=== PATIENT | female | born 1955 | race Caucasian/White ===

== ENCOUNTER 2020-01-25 16:36 | Inpatient (IN) | payer MEDICARE, SELFPAY ==
[2020-01-28 04:00] VITALS: BMI 43.0
[2020-01-28] MEDS: Docusate Sodium 100 MG CAPSULE PO (21:00)
[2020-01-29 04:00] VITALS: BP 113/59; PULSE 81; RESP 18; TEMP 36.9; O2SAT 97
[2020-01-29] MEDS: oxyCODONE HCl Immed Release 5 MG TABLET 10 MG PO ×2 (05:53→15:38)
[2020-01-29] MEDS: Levothyroxine Sodium 125 MCG TABLET 250 MCG PO (05:54)
[2020-01-29] MEDS: Omeprazole 20 MG CAPSULE.DR PO ×2 (05:54→17:46)
[2020-01-29] MEDS: Heparin Sodium,Porcine 5,000 UNIT/ML VIAL 5000 UNIT SUBCUT ×3 (05:54→22:34)
[2020-01-29 05:56] VITALS: O2SAT 97
[2020-01-29 07:40] LABS: Glucose, Whole Blood 120 mg/dL (60-115)
[2020-01-29 08:00] VITALS: BP 103/64; RESP 16; TEMP 36.3; O2SAT 92
[2020-01-29] MEDS: 0.9 % Sodium Chloride Flush 3 ML SYRINGE 2 ML IVFLUSH ×3 (09:28→15:38)
[2020-01-29] MEDS: atenoloL 25 MG TABLET PO (09:33)
[2020-01-29] MEDS: Docusate Sodium 100 MG CAPSULE PO ×2 (09:33→22:34)
[2020-01-29] MEDS: Furosemide 20 MG TABLET PO (09:33)
[2020-01-29] MEDS: polyethylene glycoL 3350 17 GM POWD.PACK PO (09:34)
[2020-01-29 12:00] VITALS: BP 101/50; RESP 16; TEMP 36.2; O2SAT 94
[2020-01-29] MEDS: Zinc Oxide 20% Ointment 28.35 GM TUBE 1 APPL TOPICAL ×2 (13:08→22:41)
--- NOTE | 2020-01-29 13:47 | PM.HEMONCPN ---
Medical Summary - Medical Summary Chief complaint: Metastatic disease to liver. Medical Summary: Metastatic adenocarcinoma, in the liver likely pancreatic primary. Interval History Interval history: This is an unfortunate 64-year-old lady with recent diagnosis of likely pancreatic primary with liver metastases and recurrent ascites. She had presented with Mental status changes, due to acute hypercapnia respiratory failure, hyperkalemia with acute kidney injury. she was initially admitted to the ICU. CT scan of the abdomen revealed: Overall examination is similar to the 01/01/2020 study. Moderate volume of abdominal ascites is again present. Multiple low-attenuation lesions in the liver are seen but difficult to evaluate on this noncontrast study. The larger lesions that are able to be measured appeared to measure fluid attenuation. Patient had intervening cytopathology assessing the ascites. Chronic appearing and postoperative changes otherwise as described. ultrasound of the neck: Right internal jugular central venous catheter terminates within the right atrium. ULTRASOUND - PARACENTEIS WITH IMAGING: Successful ultrasound-guided portable paracentesis performed with approximately 10 L of clear yellowish fluid removed. She is clinically not doing well. she has a poor performance status. She is in pain. She has ascites. The option for Comfort care has been addressed with the patient. Review of Systems - Constitutional Reports lack of energy, Reports malaise - ENT Reports system reviewed and no additional complaints, except as documented - Cardiovascular Reports lightheadedness - Respiratory Reports dyspnea on exertion - Gastrointestinal Reports abdominal pain, Reports bloating, Reports change in bowel habits, Reports change in stools, Reports nausea - Musculoskeletal Reports back pain, Reports body aches - Neurologic Reports lack of coordination - Psychiatric Reports depression - Endocrine Reports cold intolerance - Hematologic/Lymphatic Reports easy bleeding Home Medications and Allergies Current Medications: Current Medications Generic Name Dose Route Start Last Admin Trade Name Freq PRN Reason Stop Dose Admin Acetaminophen 650 mg 01/29/20 00:01 Acetaminophen 325 Mg Tablet PO Q6H PRN Fever/Pain.Mild (Scale 1-3) Albuterol Sulfate 2 puff 01/29/20 00:01 Albuterol Sulfate 90 Mcg 18 Gm Inhaler INHALE Q4H PRN Shortness of Breath Aspirin 81 mg 01/29/20 21:00 Aspirin 81 Mg Tab.Chew PO BEDTIME KURT Atenolol 25 mg 01/29/20 09:00 01/29/20 09:33 Atenolol 25 Mg Tablet PO 25 mg BID KURT Administration Atorvastatin Calcium 20 mg 01/29/20 21:00 Atorvastatin Calcium 20 Mg Tablet PO BEDTIME KURT Docusate Sodium 100 mg 01/28/20 21:00 01/29/20 09:33 Docusate Sodium 100 Mg Capsule PO 100 mg BID KURT Administration Ferrous Sulfate 324 mg 01/30/20 10:00 Ferrous Sulfate 324 Mg Tablet.Dr BOLDEN MOWEFR@1000 KURT Furosemide 20 mg 01/29/20 09:00 01/29/20 09:33 Furosemide 20 Mg Tablet PO 20 mg DAILY KURT Administration Gabapentin 300 mg 01/29/20 21:00 Gabapentin 300 Mg Capsule PO BEDTIME KURT Heparin Sodium (Porcine) 5,000 unit 01/29/20 06:00 01/29/20 05:54 Heparin Sodium,Porcine 5,000 Unit/Ml Vial SUBCUT 5,000 unit Q8H [facility] Administration Insulin Human Lispro 0 unit 01/29/20 08:00 01/29/20 13:07 Insulin Lispro 100 Unit/Ml 3 Ml Vial SUBCUT Not Given QIDACHS [facility] Protocol Levothyroxine Sodium 250 mcg 01/29/20 06:00 01/29/20 05:54 Levothyroxine Sodium 125 Mcg Tablet PO 250 mcg DAILY@0600 [facility] Administration Omeprazole 20 mg 01/29/20 06:30 01/29/20 05:54 Omeprazole 20 Mg Capsule.Dr BOLDEN 20 mg BID@0630,1630 [facility] Administration Ondansetron HCl 4 mg 01/29/20 00:01 Ondansetron Hcl 4 Mg/2 Ml Vial IVPUSH Q8H PRN Nausea and Vomiting Oxycodone HCl 10 mg 01/29/20 00:01 01/29/20 05:53 Oxycodone Hcl Immed Release 5 Mg Tablet PO 10 mg Q6H PRN Administration Pain, Moderate (Pain Scale 4-6 Polyethylene Glycol 17 gm 01/29/20 09:00 01/29/20 09:34 Polyethylene Glycol 3350 17 Gm Powd.Pack PO 17 gm DAILY [facility] Administration Sodium Chloride 2 ml 01/29/20 00:00 01/29/20 09:28 0.9 % Sodium Chloride Flush 3 Ml Syringe IVFLUSH 2 ml QSHIFT [facility] Administration Zinc Oxide 1 appl 01/29/20 09:00 01/29/20 13:08 Zinc Oxide 20% Ointment 28.35 Gm Tube TOPICAL 1 appl BID KURT Administration Protocol Home Medications Medication Instructions Recorded Confirmed Type albuterol sulfate [ProAir HFA] 2 puff INHALATION Q4-6H PRN 01/29/20 01/29/20 History alprazolam [Xanax] 0.25 mg PO BID PRN 01/29/20 01/29/20 History aspirin 81 mg PO DAILY 01/29/20 01/29/20 History atenolol 25 mg PO BID 01/29/20 01/29/20 History atorvastatin [Lipitor] 20 mg PO BEDTIME 01/29/20 01/29/20 History cholecalciferol (vitamin D3) 50 mcg PO DAILY 01/29/20 01/29/20 History docusate sodium [Colace] 100 mg PO BID 01/29/20 01/29/20 History ferrous sulfate 324 mg PO MOWEFR@1000 01/29/20 01/29/20 History furosemide 20 mg PO QAM 01/29/20 01/29/20 History gabapentin 300 mg PO BEDTIME 01/29/20 01/29/20 History insulin glargine U-300 conc 70 unit SUBCUT DAILY 01/29/20 01/29/20 History [Toujeo Max U-300 SoloStar] insulin lispro [Admelog SoloStar See Protocol SUBCUT QIDACHS 01/29/20 01/29/20 History U-100 Insulin] lactobacillus combo no.11 1 cap PO DAILY 01/29/20 01/29/20 History levothyroxine 250 mcg PO DAILY@0630 01/29/20 01/29/20 History magnesium oxide 400 mg PO BEDTIME 01/29/20 01/29/20 History metformin 1,000 mg PO BID 01/29/20 01/29/20 History omeprazole 20 mg PO BID@0630,1630 01/29/20 01/29/20 History ondansetron HCl [Zofran] 8 mg PO Q8H PRN 01/29/20 01/29/20 History oxycodone 5 mg PO Q6H PRN 01/29/20 01/29/20 History oxycodone 20 mg PO BID 01/29/20 01/29/20 History polyethylene glycol 3350 [Miralax] 17 g PO DAILY 01/29/20 01/29/20 History potassium gluconate 500 mg PO DAILY 01/29/20 01/29/20 History Allergies Allergy/AdvReac Type Severity Reaction Status Date / Time Sulfa (Sulfonamide Allergy Mild RASH Verified 01/30/20 15:43 Antibiotics) NEUTROGENA FACIAL SOAP Allergy Severe ASTHMA Uncoded 01/15/20 15:10 ATTACK Erythromycin Allergy Unknown Unknown Uncoded 01/30/20 15:43 nutregena Allergy Unknown Unknown Uncoded 01/30/20 15:43 Sulfamethoxazole Allergy Unknown Unknown Uncoded 01/30/20 15:43 Exam Vital signs: Vital Signs Temp 97.2 F 01/29/20 12:00 Pulse 81 01/29/20 04:00 Resp 16 01/29/20 12:00 BP 101/50 L 01/29/20 12:00 Pulse Ox 94 01/29/20 12:00 Intake & Output 01/28/20 01/29/20 01/29/20 18:59 06:59 18:59 Output Total 25 / 25 Balance -25 / -25 Urine Output (Average ml/kg/hr) 0.02 0.02 Output: Output, Urine Amount 25 / 25 Other: Meal Refused No Breakfast % Eaten 25% Urine ny Urine Color Mary Lou Weight 110 kg Body Mass Index 43.0 Data - Labs CBC & Chem 7: 01/31/20 01:54 01/31/20 09:14 Labs: Laboratory Results - last 24 hr 01/25/20 01/26/20 01/26/20 23:43 05:19 05:27 WBC RBC Hgb Hct MCV MCH MCHC RDW Coeff of Pratibha Plt Count MPV Immature Gran % (Auto) Neut % (Auto) Lymph % (Auto) [place] % (Auto) Eos % (Auto) Baso % (Auto) Abs Immat Gran (auto) Absolute Lymphs (auto) Absolute Monos (auto) Absolute Eos (auto) Absolute Basos (auto) Absolute Nucleated RBC Nucleated RBC % (auto) Absolute Neutrophils D-Dimer VBG pH VBG pCO2 VBG pO2 VBG HCO3 VBG O2 Sat ([place]) VBG Base Excess FiO2 Sodium 136 Potassium 4.5 D Chloride 99 Bicarbonate 29 Anion Gap 13 BUN 26 H Creatinine 0.92 Estimated Creat Clear 74.5 Est GFR (Non-Af Amer) > 60 POC Glucose 133 H 114 Random Glucose 125 H Calcium 8.1 L Phosphorus 4.3 Magnesium 2.6 Total Bilirubin 2.6 H AST 54 H ALT 18 Alkaline Phosphatase 768 H D Total Protein 5.9 L Albumin 3.0 L D Carcinoembryonic Ag 0.70 Fluid Type Fluid Source Fluid WBC Fluid RBC Fluid Seg Neutrophils Fluid Lymphocytes Fluid Monocytes Fluid Eosinophils Fluid Basophils Fluid Other Cells Fluid Glucose Fluid Total Protein Fluid LDH Fluid Amylase 01/26/20 01/26/20 01/26/20 05:27 05:27 08:01 WBC 13.2 H RBC 3.95 L Hgb 9.5 L Hct 33.4 L MCV 84.6 MCH 24.1 L MCHC 28.4 L RDW Coeff of Pratibha 20.1 H Plt Count 340 MPV 9.6 Immature Gran % (Auto) 0.4 Neut % (Auto) 79.8 H Lymph % (Auto) 9.4 L [place] % (Auto) 8.2 Eos % (Auto) 1.7 Baso % (Auto) 0.5 Abs Immat Gran (auto) 0.05 H Absolute Lymphs (auto) 1.2 Absolute Monos (auto) 1.1 Absolute Eos (auto) 0.2 Absolute Basos (auto) 0.1 Absolute Nucleated RBC 0.000 Nucleated RBC % (auto) 0.0 Absolute Neutrophils 10.5 H D-Dimer VBG pH 7.35 VBG pCO2 53 VBG pO2 45 VBG HCO3 29 VBG O2 Sat ([place]) 79.1 VBG Base Excess 2.1 FiO2 . Sodium Potassium Chloride Bicarbonate Anion Gap BUN Creatinine Estimated Creat Clear Est GFR (Non-Af Amer) POC Glucose 120 H Random Glucose Calcium Phosphorus Magnesium Total Bilirubin AST ALT Alkaline Phosphatase Total Protein Albumin Carcinoembryonic Ag Fluid Type Fluid Source Fluid WBC Fluid RBC Fluid Seg Neutrophils Fluid Lymphocytes Fluid Monocytes Fluid Eosinophils Fluid Basophils Fluid Other Cells Fluid Glucose Fluid Total Protein Fluid LDH Fluid Amylase 01/26/20 01/26/20 01/26/20 11:31 11:31 11:31 WBC RBC Hgb Hct MCV MCH MCHC RDW Coeff of [place]ha Plt Count MPV Immature Gran % (Auto) Neut % (Auto) Lymph % (Auto) [place] % (Auto) Eos % (Auto) Baso % (Auto) Abs Immat Gran (auto) Absolute Lymphs (auto) Absolute Monos (auto) Absolute Eos (auto) Absolute Basos (auto) Absolute Nucleated RBC Nucleated RBC % (auto) Absolute Neutrophils D-Dimer VBG pH VBG pCO2 VBG pO2 VBG HCO3 VBG O2 Sat ([place]) VBG Base Excess FiO2 Sodium Potassium Chloride Bicarbonate Anion Gap BUN Creatinine Estimated Creat Clear Est GFR (Non-Af Amer) POC Glucose Random Glucose Calcium Phosphorus Magnesium Total Bilirubin AST ALT Alkaline Phosphatase Total Protein Albumin Carcinoembryonic Ag Fluid Type ABDOMINAL Fluid Source ABDOMINAL ABDOMINAL Fluid WBC 0.229 Fluid RBC < 0.002 Fluid Seg Neutrophils 17 Fluid Lymphocytes 28 Fluid Monocytes 20 Fluid Eosinophils 0 Fluid Basophils 0 Fluid Other Cells 35 Fluid Glucose 134.0 Fluid Total Protein 2.9 Fluid LDH 87 Fluid Amylase 12.0 01/26/20 01/26/20 01/26/20 12:01 14:00 17:46 WBC RBC Hgb Hct MCV MCH MCHC RDW Coeff of [place]ha Plt Count MPV Immature Gran % (Auto) Neut % (Auto) Lymph % (Auto) [place] % (Auto) Eos % (Auto) Baso % (Auto) Abs Immat Gran (auto) Absolute Lymphs (auto) Absolute Monos (auto) Absolute Eos (auto) Absolute Basos (auto) Absolute Nucleated RBC Nucleated RBC % (auto) Absolute Neutrophils D-Dimer 845 VBG pH VBG pCO2 VBG pO2 VBG HCO3 VBG O2 Sat ([place]) VBG Base Excess FiO2 Sodium Potassium Chloride Bicarbonate Anion Gap BUN Creatinine Estimated Creat Clear Est GFR (Non-Af Amer) POC Glucose 132 H 148 H Random Glucose Calcium Phosphorus Magnesium Total Bilirubin AST ALT Alkaline Phosphatase Total Protein Albumin Carcinoembryonic Ag Fluid Type Fluid Source Fluid WBC Fluid RBC Fluid Seg Neutrophils Fluid Lymphocytes Fluid Monocytes Fluid Eosinophils Fluid Basophils Fluid Other Cells Fluid Glucose Fluid Total Protein Fluid LDH Fluid Amylase 01/26/20 01/27/20 01/27/20 21:05 07:25 11:37 WBC RBC Hgb Hct MCV MCH MCHC RDW Coeff of [place]ha Plt Count MPV Immature Gran % (Auto) Neut % (Auto) Lymph % (Auto) [place] % (Auto) Eos % (Auto) Baso % (Auto) Abs Immat Gran (auto) Absolute Lymphs (auto) Absolute Monos (auto) Absolute Eos (auto) Absolute Basos (auto) Absolute Nucleated RBC Nucleated RBC % (auto) Absolute Neutrophils D-Dimer VBG pH VBG pCO2 VBG pO2 VBG HCO3 VBG O2 Sat ([place]) VBG Base Excess FiO2 Sodium Potassium Chloride Bicarbonate Anion Gap BUN Creatinine Estimated Creat Clear Est GFR (Non-Af Amer) POC Glucose 158 H 138 H 154 H Random Glucose Calcium Phosphorus Magnesium Total Bilirubin AST ALT Alkaline Phosphatase Total Protein Albumin Carcinoembryonic Ag Fluid Type Fluid Source Fluid WBC Fluid RBC Fluid Seg Neutrophils Fluid Lymphocytes Fluid Monocytes Fluid Eosinophils Fluid Basophils Fluid Other Cells Fluid Glucose Fluid Total Protein Fluid LDH Fluid Amylase 01/27/20 01/27/20 01/28/20 16:56 21:55 07:21 WBC RBC Hgb Hct MCV MCH MCHC RDW Coeff of [place] Plt Count MPV Immature Gran % (Auto) Neut % (Auto) Lymph % (Auto) [place] % (Auto) Eos % (Auto) Baso % (Auto) Abs Immat Gran (auto) Absolute Lymphs (auto) Absolute Monos (auto) Absolute Eos (auto) Absolute Basos (auto) Absolute Nucleated RBC Nucleated RBC % (auto) Absolute Neutrophils D-Dimer VBG pH VBG pCO2 VBG pO2 VBG HCO3 VBG O2 Sat ([place]) VBG Base Excess FiO2 Sodium Potassium Chloride Bicarbonate Anion Gap BUN Creatinine Estimated Creat Clear Est GFR (Non-Af Amer) POC Glucose 132 H 125 H 133 H Random Glucose Calcium Phosphorus Magnesium Total Bilirubin AST ALT Alkaline Phosphatase Total Protein Albumin Carcinoembryonic Ag Fluid Type Fluid Source Fluid WBC Fluid RBC Fluid Seg Neutrophils Fluid Lymphocytes Fluid Monocytes Fluid Eosinophils Fluid Basophils Fluid Other Cells Fluid Glucose Fluid Total Protein Fluid LDH Fluid Amylase 01/28/20 01/28/20 01/28/20 11:10 16:10 21:17 WBC RBC Hgb Hct MCV MCH MCHC RDW Coeff of [place]ha Plt Count MPV Immature Gran % (Auto) Neut % (Auto) Lymph % (Auto) [place] % (Auto) Eos % (Auto) Baso % (Auto) Abs Immat Gran (auto) Absolute Lymphs (auto) Absolute Monos (auto) Absolute Eos (auto) Absolute Basos (auto) Absolute Nucleated RBC Nucleated RBC % (auto) Absolute Neutrophils D-Dimer VBG pH VBG pCO2 VBG pO2 VBG HCO3 VBG O2 Sat ([place]) VBG Base Excess FiO2 Sodium Potassium Chloride Bicarbonate Anion Gap BUN Creatinine Estimated Creat Clear Est GFR (Non-Af Amer) POC Glucose 134 H 135 H 134 H Random Glucose Calcium Phosphorus Magnesium Total Bilirubin AST ALT Alkaline Phosphatase Total Protein Albumin Carcinoembryonic Ag Fluid Type Fluid Source Fluid WBC Fluid RBC Fluid Seg Neutrophils Fluid Lymphocytes Fluid Monocytes Fluid Eosinophils Fluid Basophils Fluid Other Cells Fluid Glucose Fluid Total Protein Fluid LDH Fluid Amylase 01/29/20 07:37 WBC RBC Hgb Hct MCV MCH MCHC RDW Coeff of [place] Plt Count MPV Immature Gran % (Auto) Neut % (Auto) Lymph % (Auto) [place] % (Auto) Eos % (Auto) Baso % (Auto) Abs Immat Gran (auto) Absolute Lymphs (auto) Absolute Monos (auto) Absolute Eos (auto) Absolute Basos (auto) Absolute Nucleated RBC Nucleated RBC % (auto) Absolute Neutrophils D-Dimer VBG pH VBG pCO2 VBG pO2 VBG HCO3 VBG O2 Sat ([place]) VBG Base Excess FiO2 Sodium Potassium Chloride Bicarbonate Anion Gap BUN Creatinine Estimated Creat Clear Est GFR (Non-Af Amer) POC Glucose 120 H Random Glucose Calcium Phosphorus Magnesium Total Bilirubin AST ALT Alkaline Phosphatase Total Protein Albumin Carcinoembryonic Ag Fluid Type Fluid Source Fluid WBC Fluid RBC Fluid Seg Neutrophils Fluid Lymphocytes Fluid Monocytes Fluid Eosinophils Fluid Basophils Fluid Other Cells Fluid Glucose Fluid Total Protein Fluid LDH Fluid Amylase Progress Note: A/P (1) Liver metastases Status: Acute Assessment and plan: IMPRESSION AND PLAN: 64-year-old unfortunate lady with widely metastatic Adenocarcinoma in the liver with possible underlying pancreatic primary. Unfortunately she has been diagnosed rather late in her course, and her prognosis is rather guarded. I went over the guarded prognosis and limited options for care, in this lady with the very poor performance status, who is mostly bedridden. I discussed options of home hospice versus inpatient hospice care. They would like to bring her home, according to her wishes. however they would like to have an indwelling PleurX catheter for possible drainage of ascites at home for palliation. I discussed this with Dr. Srivastava. She will try to set this up, with IR. I discussed the case further with the case management, to make a referral to [facility]. She will need a hospital bed. She will be discharged home once the arrangements have been made. Thank you, - Time Spent With Patient Total time spent is greater than 50% in coordination of care (as documented) at patient's floor/unit and/or counseling patient: 15 - 24 minutes
[2020-01-29 15:39] VITALS: BP 101/55; PULSE 76; RESP 20; TEMP 36; O2SAT 92
--- NOTE | 2020-01-29 16:27 | P.PNIM_ITS ---
Subjective Subjective Date of Service: 01/29/20 Interval History: patient seen and examined at bedside patient reported weakness Physical Exam Vital Signs and I&O and Narrative: Vital Signs and I&O: Vital Signs Temp 96.8 F 01/29/20 15:39 Pulse 76 01/29/20 15:39 Resp 20 01/29/20 15:39 BP 101/55 L 01/29/20 15:39 Pulse Ox 92 01/29/20 15:39 Intake & Output 01/28/20 01/29/20 01/29/20 18:59 06:59 18:59 Intake Total 180 / 180 Output Total 25 / 25 200 / 200 Balance -25 / -25 - -20 Urine Output (Aver age ml/kg/hr) 0.02 0.15 Intake: Intake, Oral [place] unt 180 / 180 Output: Output, Urine Am ount 25 / 25 200 / 200 Other: Meal Refused No Breakfast % Eate n 25% Urine ny prewick Urine Color [place] Body Mass Index 43.0 Const: General: cooperative Resp: Effort & Inspection: normal respiratory effort Auscultation: clear to auscultation bilaterally Cardio: Jugular venous distension: no JVD Objective Data Current Medications Generic Name Dose Route Start Last Admin Trade Name Freq PRN Reason Stop Dose Admin Acetaminophen 650 mg 01/29/20 00:01 Acetaminophen 325 Mg Tablet PO Q6H PRN Fever/Pain.Mild (Scale 1-3) Albuterol Sulfate 2 puff 01/29/20 00:01 Albuterol Sulfate 90 Mcg 18 Gm Inhaler INHALE Q4H PRN Shortness of Breath Aspirin 81 mg 01/29/20 21:00 Aspirin 81 Mg Tab.Chew PO BEDTIME KURT Atenolol 25 mg 01/29/20 09:00 01/29/20 09:33 Atenolol 25 Mg Tablet PO 25 mg BID [facility] Administration Atorvastatin Calcium 20 mg 01/29/20 21:00 Atorvastatin Calcium 20 Mg Tablet PO BEDTIME KURT Docusate Sodium 100 mg 01/28/20 21:00 01/29/20 09:33 Docusate Sodium 100 Mg Capsule PO 100 mg BID KURT Administration Ferrous Sulfate 324 mg 01/30/20 10:00 Ferrous Sulfate 324 Mg Tablet. PO MOWEFR@1000 [facility] Furosemide 20 mg 01/29/20 09:00 01/29/20 09:33 Furosemide 20 Mg Tablet PO 20 mg DAILY KURT Administration Gabapentin 300 mg 01/29/20 21:00 Gabapentin 300 Mg Capsule PO BEDTIME KURT Heparin Sodium (Porcine) 5,000 unit 01/29/20 06:00 01/29/20 15:38 Heparin Sodium,Porcine 5,000 Unit/Ml Vial SUBCUT 5,000 unit Q8H [facility] Administration Insulin Human Lispro 0 unit 01/29/20 08:00 01/29/20 13:07 Insulin Lispro 100 Unit/Ml 3 Ml Vial SUBCUT Not Given QIDACHS [facility] Protocol Levothyroxine Sodium 250 mcg 01/29/20 06:00 01/29/20 05:54 Levothyroxine Sodium 125 Mcg Tablet PO 250 mcg DAILY@0600 [facility] Administration Omeprazole 20 mg 01/29/20 06:30 01/29/20 05:54 Omeprazole 20 Mg Capsule. PO 20 mg BID@0630,1630 [facility] Administration Ondansetron HCl 4 mg 01/29/20 00:01 Ondansetron Hcl 4 Mg/2 Ml Vial IVPUSH Q8H PRN Nausea and Vomiting Oxycodone HCl 10 mg 01/29/20 00:01 01/29/20 15:38 Oxycodone Hcl Immed Release 5 Mg Tablet PO 10 mg Q6H PRN Administration Pain, Moderate (Pain Scale 4-6 Polyethylene Glycol 17 gm 01/29/20 09:00 01/29/20 09:34 Polyethylene Glycol 3350 17 Gm Powd.Pack PO 17 gm DAILY [facility] Administration Sodium Chloride 2 ml 01/29/20 00:00 01/29/20 15:38 0.9 % Sodium Chloride Flush 3 Ml Syringe IVFLUSH 2 ml QSHIFT [facility] Administration Zinc Oxide 1 appl 01/29/20 09:00 01/29/20 13:08 Zinc Oxide 20% Ointment 28.35 Gm Tube TOPICAL 1 appl BID KURT Administration Protocol Labs CBC & Chem 7: 01/29/20 17:35 01/30/20 09:47 Labs: Laboratory Results - last 24 hr 01/25/20 01/26/20 01/26/20 23:43 05:19 05:27 MCV MCH MCHC RDW Coeff of Pratibha Plt Count MPV Immature Gran % (Auto) Neut % (Auto) Lymph % (Auto) [place] % (Auto) Eos % (Auto) Baso % (Auto) Abs Immat Gran (auto) Absolute Lymphs (auto) Absolute Monos (auto) Absolute Eos (auto) Absolute Basos (auto) Absolute Nucleated RBC Nucleated RBC % (auto) Absolute Neutrophils D-Dimer VBG pH VBG pCO2 VBG pO2 VBG HCO3 VBG O2 Sat ([place]) VBG Base Excess FiO2 Bicarbonate 29 Anion Gap 13 Estimated Creat Clear 74.5 Est GFR (Non-Af Amer) > 60 POC Glucose 133 H 114 Random Glucose 125 H Calcium 8.1 L Phosphorus 4.3 Magnesium 2.6 Total Bilirubin 2.6 H AST 54 H ALT 18 Alkaline Phosphatase 768 H D Total Protein 5.9 L Albumin 3.0 L D Carcinoembryonic Ag 0.70 Fluid Type Fluid Source Fluid WBC Fluid RBC Fluid Seg Neutrophils Fluid Lymphocytes Fluid Monocytes Fluid Eosinophils Fluid Basophils Fluid Other Cells Fluid Glucose Fluid Total Protein Fluid LDH Fluid Amylase 01/26/20 01/26/20 01/26/20 05:27 05:27 08:01 MCV 84.6 MCH 24.1 L MCHC 28.4 L RDW Coeff of Pratibha 20.1 H Plt Count 340 MPV 9.6 Immature Gran % (Auto) 0.4 Neut % (Auto) 79.8 H Lymph % (Auto) 9.4 L [place] % (Auto) 8.2 Eos % (Auto) 1.7 Baso % (Auto) 0.5 Abs Immat Gran (auto) 0.05 H Absolute Lymphs (auto) 1.2 Absolute Monos (auto) 1.1 Absolute Eos (auto) 0.2 Absolute Basos (auto) 0.1 Absolute Nucleated RBC 0.000 Nucleated RBC % (auto) 0.0 Absolute Neutrophils 10.5 H D-Dimer VBG pH 7.35 VBG pCO2 53 VBG pO2 45 VBG HCO3 29 VBG O2 Sat ([place]) 79.1 VBG Base Excess 2.1 FiO2 . Bicarbonate Anion Gap Estimated Creat Clear Est GFR (Non-Af Amer) POC Glucose 120 H Random Glucose Calcium Phosphorus Magnesium Total Bilirubin AST ALT Alkaline Phosphatase Total Protein Albumin Carcinoembryonic Ag Fluid Type Fluid Source Fluid WBC Fluid RBC Fluid Seg Neutrophils Fluid Lymphocytes Fluid Monocytes Fluid Eosinophils Fluid Basophils Fluid Other Cells Fluid Glucose Fluid Total Protein Fluid LDH Fluid Amylase 01/26/20 01/26/20 01/26/20 11:31 11:31 11:31 MCV MCH MCHC RDW Coeff of Pratibha Plt Count MPV Immature Gran % (Auto) Neut % (Auto) Lymph % (Auto) [place] % (Auto) Eos % (Auto) Baso % (Auto) Abs Immat Gran (auto) Absolute Lymphs (auto) Absolute Monos (auto) Absolute Eos (auto) Absolute Basos (auto) Absolute Nucleated RBC Nucleated RBC % (auto) Absolute Neutrophils D-Dimer VBG pH VBG pCO2 VBG pO2 VBG HCO3 VBG O2 Sat ([place]) VBG Base Excess FiO2 Bicarbonate Anion Gap Estimated Creat Clear Est GFR (Non-Af Amer) POC Glucose Random Glucose Calcium Phosphorus Magnesium Total Bilirubin AST ALT Alkaline Phosphatase Total Protein Albumin Carcinoembryonic Ag Fluid Type ABDOMINAL Fluid Source ABDOMINAL ABDOMINAL Fluid WBC 0.229 Fluid RBC < 0.002 Fluid Seg Neutrophils 17 Fluid Lymphocytes 28 Fluid Monocytes 20 Fluid Eosinophils 0 Fluid Basophils 0 Fluid Other Cells 35 Fluid Glucose 134.0 Fluid Total Protein 2.9 Fluid LDH 87 Fluid Amylase 12.0 01/26/20 01/26/20 01/26/20 12:01 14:00 17:46 MCV MCH MCHC RDW Coeff of [place] Plt Count MPV Immature Gran % (Auto) Neut % (Auto) Lymph % (Auto) [place] % (Auto) Eos % (Auto) Baso % (Auto) Abs Immat Gran (auto) Absolute Lymphs (auto) Absolute Monos (auto) Absolute Eos (auto) Absolute Basos (auto) Absolute Nucleated RBC Nucleated RBC % (auto) Absolute Neutrophils D-Dimer 845 VBG pH VBG pCO2 VBG pO2 VBG HCO3 VBG O2 Sat ([place]) VBG Base Excess FiO2 Bicarbonate Anion Gap Estimated Creat Clear Est GFR (Non-Af Amer) POC Glucose 132 H 148 H Random Glucose Calcium Phosphorus Magnesium Total Bilirubin AST ALT Alkaline Phosphatase Total Protein Albumin Carcinoembryonic Ag Fluid Type Fluid Source Fluid WBC Fluid RBC Fluid Seg Neutrophils Fluid Lymphocytes Fluid Monocytes Fluid Eosinophils Fluid Basophils Fluid Other Cells Fluid Glucose Fluid Total Protein Fluid LDH Fluid Amylase 01/26/20 01/27/20 01/27/20 21:05 07:25 11:37 MCV MCH MCHC RDW Coeff of Pratibha Plt Count MPV Immature Gran % (Auto) Neut % (Auto) Lymph % (Auto) [place] % (Auto) Eos % (Auto) Baso % (Auto) Abs Immat Gran (auto) Absolute Lymphs (auto) Absolute Monos (auto) Absolute Eos (auto) Absolute Basos (auto) Absolute Nucleated RBC Nucleated RBC % (auto) Absolute Neutrophils D-Dimer VBG pH VBG pCO2 VBG pO2 VBG HCO3 VBG O2 Sat ([place]) VBG Base Excess FiO2 Bicarbonate Anion Gap Estimated Creat Clear Est GFR (Non-Af Amer) POC Glucose 158 H 138 H 154 H Random Glucose Calcium Phosphorus Magnesium Total Bilirubin AST ALT Alkaline Phosphatase Total Protein Albumin Carcinoembryonic Ag Fluid Type Fluid Source Fluid WBC Fluid RBC Fluid Seg Neutrophils Fluid Lymphocytes Fluid Monocytes Fluid Eosinophils Fluid Basophils Fluid Other Cells Fluid Glucose Fluid Total Protein Fluid LDH Fluid Amylase 01/27/20 01/27/20 01/28/20 16:56 21:55 07:21 MCV MCH MCHC RDW Coeff of Pratibha Plt Count MPV Immature Gran % (Auto) Neut % (Auto) Lymph % (Auto) [place] % (Auto) Eos % (Auto) Baso % (Auto) Abs Immat Gran (auto) Absolute Lymphs (auto) Absolute Monos (auto) Absolute Eos (auto) Absolute Basos (auto) Absolute Nucleated RBC Nucleated RBC % (auto) Absolute Neutrophils D-Dimer VBG pH VBG pCO2 VBG pO2 VBG HCO3 VBG O2 Sat ([place]) VBG Base Excess FiO2 Bicarbonate Anion Gap Estimated Creat Clear Est GFR (Non-Af Amer) POC Glucose 132 H 125 H 133 H Random Glucose Calcium Phosphorus Magnesium Total Bilirubin AST ALT Alkaline Phosphatase Total Protein Albumin Carcinoembryonic Ag Fluid Type Fluid Source Fluid WBC Fluid RBC Fluid Seg Neutrophils Fluid Lymphocytes Fluid Monocytes Fluid Eosinophils Fluid Basophils Fluid Other Cells Fluid Glucose Fluid Total Protein Fluid LDH Fluid Amylase 01/28/20 01/28/20 01/28/20 11:10 16:10 21:17 MCV MCH MCHC RDW Coeff of Pratibha Plt Count MPV Immature Gran % (Auto) Neut % (Auto) Lymph % (Auto) [place] % (Auto) Eos % (Auto) Baso % (Auto) Abs Immat Gran (auto) Absolute Lymphs (auto) Absolute Monos (auto) Absolute Eos (auto) Absolute Basos (auto) Absolute Nucleated RBC Nucleated RBC % (auto) Absolute Neutrophils D-Dimer VBG pH VBG pCO2 VBG pO2 VBG HCO3 VBG O2 Sat ([place]) VBG Base Excess FiO2 Bicarbonate Anion Gap Estimated Creat Clear Est GFR (Non-Af Amer) POC Glucose 134 H 135 H 134 H Random Glucose Calcium Phosphorus Magnesium Total Bilirubin AST ALT Alkaline Phosphatase Total Protein Albumin Carcinoembryonic Ag Fluid Type Fluid Source Fluid WBC Fluid RBC Fluid Seg Neutrophils Fluid Lymphocytes Fluid Monocytes Fluid Eosinophils Fluid Basophils Fluid Other Cells Fluid Glucose Fluid Total Protein Fluid LDH Fluid Amylase 01/29/20 07:37 MCV MCH MCHC RDW Coeff of Pratibha Plt Count MPV Immature Gran % (Auto) Neut % (Auto) Lymph % (Auto) [place] % (Auto) Eos % (Auto) Baso % (Auto) Abs Immat Gran (auto) Absolute Lymphs (auto) Absolute Monos (auto) Absolute Eos (auto) Absolute Basos (auto) Absolute Nucleated RBC Nucleated RBC % (auto) Absolute Neutrophils D-Dimer VBG pH VBG pCO2 VBG pO2 VBG HCO3 VBG O2 Sat ([place]) VBG Base Excess FiO2 Bicarbonate Anion Gap Estimated Creat Clear Est GFR (Non-Af Amer) POC Glucose 120 H Random Glucose Calcium Phosphorus Magnesium Total Bilirubin AST ALT Alkaline Phosphatase Total Protein Albumin Carcinoembryonic Ag Fluid Type Fluid Source Fluid WBC Fluid RBC Fluid Seg Neutrophils Fluid Lymphocytes Fluid Monocytes Fluid Eosinophils Fluid Basophils Fluid Other Cells Fluid Glucose Fluid Total Protein Fluid LDH Fluid Amylase Assessment and Plan (1) Acute hypercapnic respiratory failure due to obstructive sleep apnea: Status: Acute (2) Metastasis from pancreatic cancer: Status: Acute Assessment and Plan: acute hypercapnic respiratory failure metastatic pancreatic cancer continue BiPAP at night given advanced metastatic cancer patient is not candidate for any chemo, discuss goals of care with patient and family plan for hospice given recurrent ascites family requested PleurX catheter will order PleurX catheter for tomorrow and patient will be discharged home on hospice
[2020-01-29 17:46] LABS: Glucose, Whole Blood 139 mg/dL (60-115)
[2020-01-29 17:58] LABS: Basophils Absolute Auto 0.1 X10*3/uL (0.0-0.2); Basophils Percent Auto 0.4 % (0-2); Eosinophils Absolute Auto 0.3 X10*3/uL (0.0-0.4); Eosinophils Percent Auto 1.5 % (0-4); Hemoglobin 10.9 g/dl (12.0-16.0); Imm Gran Abs Auto 0.09 X10*3/uL (0.00-0.03); Imm Gran Pct Auto 0.5 % (0.0-0.4); Lymphocytes Absolute Auto 1.6 X10*3/uL (1.2-4.9); Lymphocytes Percent Auto 9.1 % (20-40); MANUAL DIFF FLAG SCAN; Mean Corpuscular HGB Conc 28.7 g/dl (31.0-35.0); Mean Corpuscular Hemoglobin 23.8 pg (27.0-33.0); Mean Platelet Volume 9.8 fL (9.4-12.3); Monocytes Absolute Auto 1.5 X10*3/uL (0.1-1.2); Monocytes Percent Auto 8.5 % (2-11); Neutrophils Absolute Auto 14.3 X10*3/uL (2.0-8.3); Platelet Count 324 X10*3/uL (160-400); Red Blood Count 4.58 X10*6/uL (4.20-5.50); Red Cell Distribution Width 21.4 % (11.0-16.0); SCAN SMEAR FLAG 1; White Blood Count 17.9 X10*3/uL (4.8-10.8)
[2020-01-29 18:22] LABS: INTERNATIONAL NORM RATIO 1.6 (0.9-1.1); Prothrombin Time 18.8 SEC (10.8-13.0)
[2020-01-29 18:23] LABS: SLIDE REVIEW VERIFIED
[2020-01-29 18:35] LABS: Anion Gap 13 (12-20); Blood Urea Nitrogen 28 mg/dL (9-16); Calcium 7.7 mg/dL (8.4-10.2); Carbon Dioxide 28 mmol/L (22-29); Chloride 98 mmol/L (96-108); Creatinine Clr Calc Pharmacy 66.6; Estimated Glomerular Filt Rate 56; Glucose Random 131 mg/dL (60-115); Potassium 5.3 mmol/l (3.3-5.1); Sodium 134 mmol/L (135-145)
[2020-01-29 19:25] VITALS: BP 98/57; PULSE 77; RESP 18; TEMP 36.8; O2SAT 91
[2020-01-29 21:47] LABS: Glucose, Whole Blood 135 mg/dL (60-115)
[2020-01-29] MEDS: Aspirin 81 MG TAB.CHEW PO (22:34)
[2020-01-29] MEDS: Gabapentin 300 MG CAPSULE PO (22:34)
[2020-01-30] VITALS (14 sets, daily range): BP systolic 82–132; BP diastolic 51–68; PULSE 78–110; RESP 16–103; TEMP 36.5–37.9; O2SAT 90–99; BMI 42.8; BMI 44.1
--- NOTE | 2020-01-30 | US_ITS ---
EXAMINATION: ULTRASOUND-GUIDED PARACENTESIS. CLINICAL INFORMATION: Malignant ascites. COMPARISON: None TECHNIQUE: Following explaining ultrasound-guided thoracentesis procedure, benefits and risk, a written consent was obtained. Patient was placed supine on fluoroscopy table and preliminary ultrasound imaging was obtained through the abdomen. An optimal site was selected along the left lower quadrant and marked. The marked site was cleaned and draped in usual sterile manner. 1% lidocaine was injected puncture site. A 5 [place] KineMed catheter was advanced into the peritoneal space. After observing fluid return, stylet was withdrawn and catheter connected to vacuum bottle via connecting cannula. After obtaining all fluid and observing no more fluid remaining, catheter was withdrawn and complete hemostasis achieved at puncture site. Patient tolerated procedure very well. [Simple band aid was applied at the puncture site postprocedure. FINDINGS: There is moderate ascites seen on preliminary ultrasound evaluation. Approximately 6.5 L of dean-colored fluid was drained from left lower quadrant. IMPRESSION: Successful fluoroscopy-guided 6.5 L of fluid drained from the left lower quadrant. None of this fluid was sent to lab.
[2020-01-30] MEDS: oxyCODONE HCl Immed Release 5 MG TABLET 10 MG PO ×2 (00:55→17:41)
[2020-01-30] MEDS: 0.9 % Sodium Chloride Flush 3 ML SYRINGE 2 ML IVFLUSH ×3 (00:56→17:05)
[2020-01-30] MEDS: Levothyroxine Sodium 125 MCG TABLET 250 MCG PO (05:31)
[2020-01-30] MEDS: Omeprazole 20 MG CAPSULE.DR PO ×2 (05:31→17:02)
[2020-01-30 07:33] LABS: Glucose, Whole Blood 130 mg/dL (60-115)
[2020-01-30] MEDS: Docusate Sodium 100 MG CAPSULE PO (08:22)
[2020-01-30] MEDS: Furosemide 20 MG TABLET PO (08:23)
[2020-01-30] MEDS: Ferrous Sulfate 324 MG TABLET.DR PO (08:23)
[2020-01-30 10:36] LABS: Anion Gap 13 (12-20); Carbon Dioxide 27 mmol/L (22-29); Chloride 96 mmol/L (96-108); Creatinine Clr Calc Pharmacy 63.1; Estimated Glomerular Filt Rate 52; Glucose Random 141 mg/dL (60-115); Potassium 5.6 mmol/l (3.3-5.1); Sodium 130 mmol/L (135-145)
[2020-01-30 10:40] LABS: Blood Urea Nitrogen 33 mg/dL (9-16)
[2020-01-30 11:19] LABS: Glucose, Whole Blood 125 mg/dL (60-115)
[2020-01-30] MEDS: Phytonadione (Vit K1) 5 MG in 0.9 % Sodium Chloride 50 ML 50.5 MG IV (11:35)
[2020-01-30] MEDS: Zinc Oxide 20% Ointment 28.35 GM TUBE 1 APPL TOPICAL ×2 (11:35→21:45)
[2020-01-30] MEDS: Lidocaine HCl 1 % 20 ML VIAL 5 ML SUBCUT (13:15)
--- NOTE | 2020-01-30 14:26 | MHC.PIE ---
P: BP: 84/52 manually checked I: Patient asymptomatic, md notified. no new orders at this time. E: Will continue to monitor BP.
[2020-01-30] MEDS: Heparin Sodium,Porcine 5,000 UNIT/ML VIAL 5000 UNIT SUBCUT ×2 (14:31→21:04)
--- NOTE | 2020-01-30 14:31 | MHC.CM.PN ---
TC from [facility] hospice who states patient can't be sent home on Hospice then have an OP procedure. Placement unable to do today and had paracentesis. Surgeon is not able to place chest tube today or tomorrow. Patient will remain inpatient here until procedure can be done then sent home on Hospice. Nathanael christy.
--- NOTE | 2020-01-30 15:22 | HO.PM.IMPN ---
Subjective Subjective Date of Service: 01/30/20 Interval History: patient seen and examined at bedside patient reported weakness Physical Exam Vital Signs and I&O and Narrative: Vital Signs and I&O: Vital Signs Temp 97.7 F 01/30/20 14:30 Pulse 82 01/30/20 14:30 Resp 18 01/30/20 14:30 BP 84/51 L 01/30/20 14:30 Pulse Ox 95 01/30/20 14:30 Intake & Output 01/29/20 01/30/20 01/30/20 18:59 06:59 18:59 Intake Total 540 / 1020 480 / 1020 Output Total 200 / 400 200 / 400 200 / 200 Balance 340 / 620 280 / 620 -200 / -200 Urine Output (Aver age ml/kg/hr) 0.15 0.15 0.15 Weight 109.769 kg Intake: Intake, Oral [place] unt 180 / 660 480 / 660 Intake, Other Am ount 360 / 360 Output: Output, Urine Am ount 200 / 300 100 / 300 100 / 100 Output, Urine Am ount (Catheter) 100 / 100 100 / 100 Urethral 100 / 100 100 / 100 Other: Meal Refused No NPO Yes Breakfast % Eate n 25% Dinner % Eaten 100% Diabetic Snack % Eaten no Urine prewick ny Urine Color Errol Mary [place] Body Mass Index 44.1 Const: General: cooperative Resp: Effort & Inspection: normal respiratory effort Auscultation: clear to auscultation bilaterally Cardio: Jugular venous distension: no JVD Objective Data Current Medications Generic Name Dose Route Start Last Admin Trade Name Freq PRN Reason Stop Dose Admin Acetaminophen 650 mg 01/29/20 00:01 Acetaminophen 325 Mg Tablet PO Q6H PRN Fever/Pain.Mild (Scale 1-3) Albuterol Sulfate 2 puff 01/29/20 00:01 Albuterol Sulfate 90 Mcg 18 Gm Inhaler INHALE Q4H PRN Shortness of Breath Atenolol 25 mg 01/29/20 09:00 01/30/20 08:31 Atenolol 25 Mg Tablet PO Not Given BID KURT Atorvastatin Calcium 20 mg 01/29/20 21:00 01/29/20 22:39 Atorvastatin Calcium 20 Mg Tablet PO Not Given BEDTIME KURT Docusate Sodium 100 mg 01/28/20 21:00 01/30/20 08:22 Docusate Sodium 100 Mg Capsule PO 100 mg BID [facility] Administration Ferrous Sulfate 324 mg 01/30/20 10:00 01/30/20 08:23 Ferrous Sulfate 324 Mg Tablet. PO 324 mg MOWEFR@1000 [facility] Administration Furosemide 20 mg 01/29/20 09:00 01/30/20 08:23 Furosemide 20 Mg Tablet PO 20 mg DAILY [facility] Administration Gabapentin 300 mg 01/29/20 21:00 01/29/20 22:34 Gabapentin 300 Mg Capsule PO 300 mg BEDTIME [facility] Administration Heparin Sodium (Porcine) 5,000 unit 01/29/20 06:00 01/30/20 14:31 Heparin Sodium,Porcine 5,000 Unit/Ml Vial SUBCUT 5,000 unit Q8H [facility] Administration Albumin Human 100 mls @ 100 mls/hr 01/30/20 16:00 Kedbumin 25 % IV 01/30/20 17:59 Q1H [facility] Insulin Human Lispro 0 unit 01/29/20 08:00 01/30/20 11:36 Insulin Lispro 100 Unit/Ml 3 Ml Vial SUBCUT Not Given QIDACHS [facility] Protocol Levothyroxine Sodium 250 mcg 01/29/20 06:00 01/30/20 05:31 Levothyroxine Sodium 125 Mcg Tablet PO 250 mcg DAILY@0600 [facility] Administration Omeprazole 20 mg 01/29/20 06:30 01/30/20 05:31 Omeprazole 20 Mg Capsule. PO 20 mg BID@0630,1630 [facility] Administration Ondansetron HCl 4 mg 01/29/20 00:01 Ondansetron Hcl 4 Mg/2 Ml Vial IVPUSH Q8H PRN Nausea and Vomiting Oxycodone HCl 10 mg 01/29/20 00:01 01/30/20 00:55 Oxycodone Hcl Immed Release 5 Mg Tablet PO 10 mg Q6H PRN Administration Pain, Moderate (Pain Scale 4-6 Polyethylene Glycol 17 gm 01/29/20 09:00 01/30/20 08:31 Polyethylene Glycol 3350 17 Gm Powd.Pack PO Not Given DAILY [facility] Sodium Chloride 2 ml 01/29/20 00:00 01/30/20 08:22 0.9 % Sodium Chloride Flush 3 Ml Syringe IVFLUSH 2 ml QSHIFT [facility] Administration Zinc Oxide 1 appl 01/29/20 09:00 01/30/20 11:35 Zinc Oxide 20% Ointment 28.35 Gm Tube TOPICAL 1 appl BID KURT Administration Protocol Labs CBC & Chem 7: 01/29/20 17:35 01/30/20 09:47 Labs: Laboratory Results - last 24 hr 01/29/20 01/29/20 01/29/20 17:35 17:35 17:35 MCV 83.0 MCH 23.8 L MCHC 28.7 L RDW 21.4 H Plt Count 324 MPV 9.8 Immature Gran % (Auto) 0.5 H Neut % (Auto) 80.0 H Lymph % (Auto) 9.1 L [place] % (Auto) 8.5 Eos % (Auto) 1.5 Baso % (Auto) 0.4 Neut # (Auto) 14.3 H Lymph # (Auto) 1.6 [place] # (Auto) 1.5 H Eos # (Auto) 0.3 Baso # (Auto) 0.1 Abs Immat Gran (auto) 0.09 H Absolute Nucleated RBC 0.000 Nucleated RBC % (auto) 0.0 Smear Tech's Comments VERIFIED PT 18.8 H INR 1.6 H Anion Gap 13 Estim Creat Clear Calc 66.6 Estimated GFR 56 POC Glucose Random Glucose 131 H Calcium 7.7 L 01/29/20 01/29/20 01/30/20 17:41 21:43 07:29 MCV MCH MCHC RDW Plt Count MPV Immature Gran % (Auto) Neut % (Auto) Lymph % (Auto) [place] % (Auto) Eos % (Auto) Baso % (Auto) Neut # (Auto) Lymph # (Auto) [place] # (Auto) Eos # (Auto) Baso # (Auto) Abs Immat Gran (auto) Absolute Nucleated RBC Nucleated RBC % (auto) Smear Tech's Comments PT INR Anion Gap Estim Creat Clear Calc Estimated GFR POC Glucose 139 H 135 H 130 H Random Glucose Calcium 01/30/20 01/30/20 09:47 11:13 MCV MCH MCHC RDW Plt Count MPV Immature Gran % (Auto) Neut % (Auto) Lymph % (Auto) [place] % (Auto) Eos % (Auto) Baso % (Auto) Neut # (Auto) Lymph # (Auto) [place] # (Auto) Eos # (Auto) Baso # (Auto) Abs Immat Gran (auto) Absolute Nucleated RBC Nucleated RBC % (auto) Smear Tech's Comments PT INR Anion Gap 13 Estim Creat Clear Calc 63.1 Estimated GFR 52 POC Glucose 125 H Random Glucose 141 H Calcium 8.0 L Assessment and Plan (1) Acute hypercapnic respiratory failure due to obstructive sleep apnea: Status: Acute (2) Metastasis from pancreatic cancer: Status: Acute Assessment and Plan: acute hypercapnic respiratory failure metastatic pancreatic cancer continue BiPAP at night given advanced metastatic cancer patient is not candidate for any chemo, family agrees for hospice given recurrent ascites family requested PleurX catheter INR high awaiting for INR to go down for PleurX catheter placement so plan for PleurX catheter denia malagon on Sunday and discharged home on hospice
[2020-01-30] MEDS: Sodium Polystyrene Sulfon/Sorb 15 GM/60 ML ORAL.SUSP 30 GM PO (17:02)
[2020-01-30 17:03] LABS: Glucose, Whole Blood 127 mg/dL (60-115)
[2020-01-30] MEDS: Albumin Human 25 % 100 ML IV ×2 (17:04→17:34)
[2020-01-30] MEDS: atenoloL 25 MG TABLET PO (20:59)
[2020-01-30] MEDS: Atorvastatin Calcium 20 MG TABLET PO (21:00)
[2020-01-30] MEDS: Gabapentin 300 MG CAPSULE PO (21:00)
[2020-01-30 21:11] LABS: Glucose, Whole Blood 168 mg/dL (60-115)
[2020-01-31] VITALS (12 sets, daily range): BP systolic 78–98; BP diastolic 36–64; PULSE 100–127; RESP 16–22; TEMP 36.2–37.3; O2SAT 90–99; BMI 92.8
--- NOTE | 2020-01-31 01:18 | ECG_ITS ---
Test Reason : RHYTHM CHANGE Blood Pressure : / mmHG Vent. Rate : 097 BPM Atrial Rate : 326 BPM P-R Int : 000 ms QRS Dur : 070 ms QT Int : 352 ms P-R-T Axes : 000 041 044 degrees QTc Int : 447 ms Atrial fibrillation Nonspecific ST abnormality Abnormal ECG When compared with ECG of 25-JAN-2020 11:21, Atrial fibrillation has replaced Sinus rhythm Referred By: Abraham Horn Electronically Signed By:TEO SALDANA
[2020-01-31] MEDS: Lactated Ringers 500 ML 999 ML IVCONT ×3 (01:30→02:45)
[2020-01-31] MEDS: 0.9 % Sodium Chloride Flush 3 ML SYRINGE 2 ML IVFLUSH ×3 (01:34→15:00)
--- NOTE | 2020-01-31 01:48 | PC.NURSE ---
P: BP REPORTED BY EMELYN 82/52. RECHECKED BY THIS RN AND WAS 82/42 MANUALLY RIGHT ARM. PT ALSO NOTED TO BE IN AFIB, HR 90'S-LOW 100'S. TEMP 100.2 PO. I: NOTIFIED OF CHANGES E: PT ASYMPTOMATIC. LR 500 ML ORDERED AND UP AT 0130. SEPS[facility] LABS DRAWN.
[2020-01-31 02:09] LABS: Basophils Absolute Auto 0.1 X10*3/uL (0.0-0.2); Basophils Percent Auto 0.3 % (0-2); Eosinophils Absolute Auto 0.2 X10*3/uL (0.0-0.4); Eosinophils Percent Auto 1.2 % (0-4); Hematocrit 35.2 % (37-47); Hemoglobin 10.4 g/dl (12.0-16.0); Imm Gran Abs Auto 0.06 X10*3/uL (0.00-0.03); Imm Gran Pct Auto 0.3 % (0.0-0.4); Lymphocytes Absolute Auto 1.5 X10*3/uL (1.2-4.9); Lymphocytes Percent Auto 8.5 % (20-40); MANUAL DIFF FLAG SCAN; Mean Corpuscular HGB Conc 29.5 g/dl (31.0-35.0); Mean Corpuscular Hemoglobin 24.6 pg (27.0-33.0); Mean Corpuscular Volume 83.2 fL (80-98); Mean Platelet Volume 9.6 fL (9.4-12.3); Monocytes Absolute Auto 1.6 X10*3/uL (0.1-1.2); Neutrophils Absolute Auto 13.9 X10*3/uL (2.0-8.3); Neutrophils Percent Auto 80.7 % (45-73); Platelet Count 296 X10*3/uL (160-400); Red Blood Count 4.23 X10*6/uL (4.20-5.50); Red Cell Distribution Width 21.3 % (11.0-16.0); SCAN SMEAR FLAG 1; White Blood Count 17.2 X10*3/uL (4.8-10.8)
--- NOTE | 2020-01-31 02:13 | PC.NURSE ---
, DR CHURCH UPDATED. BP 84/54. PT IS ASYMPTOMATIC. MONITOR CONTINUES AFIB, HR 90'S-104, NO VENT ECTOPY. ANOTHER 500ML OF LR ORDERED AND INFUSING AT THIS TIME. WILL RECHECK BP WHEN DONE.
[2020-01-31 02:26] LABS: SLIDE REVIEW VERIFIED
[2020-01-31 02:27] LABS: Lactic Acid 1.4 mmol/L (0.5-2.0)
--- NOTE | 2020-01-31 02:41 | PM.EVENT ---
Event Note Event Note: Patient developed hypotension overnight. This occurred after receiving atenolol. Prior to receiving the atenolol blood pressure was 110/54. Around 12:00 a.m. patient's blood pressure was checked and was found to be in the 80s over 40s. Patient hemodynamically stable otherwise with no complaints. She is arousable, and completely asymptomatic. Her labs are negative for any acute findings. Lactic acid normal. She did have a low-grade fever of 100. no tachycardia or tachypnea. EKG done showed AFib which appears to be new onset. At this time I do not believe that the hypotension is secondary to AFib and is most likely secondary to atenolol. Will give 2 L of IV fluids. Given her history of pancreatic cancer and her wishes to be on hospice I will withhold from consulting Cardiology regarding her new onset A
--- NOTE | 2020-01-31 03:15 | PC.NURSE ---
UPDATED ON CURRENT BP AFTER 1 LITER OF LR. BP 88/44. WILL GIVE ANOTHER 500 ML LR. PT IS MOSTLY SLEEPING BUT IS EASILY AROUSABLE. UPDATED THE PT RECEIVED ATENOLOL 25 MG PO AT 2200. ALSO THE RHYTHM CHANGE OF AFIB. HEART RATE IS 90'S-106, NO VENT ECTOPY. U/O IS GOOD, 600 ML ON -11 AND 100 ML IN [place] BAG AT PRESENT. WILL RECHECT BP AFTER FLUIDS COMPLETE.
[2020-01-31] MEDS: Heparin Sodium,Porcine 5,000 UNIT/ML VIAL 5000 UNIT SUBCUT ×3 (05:23→22:04)
[2020-01-31] MEDS: Levothyroxine Sodium 125 MCG TABLET 250 MCG PO (05:27)
[2020-01-31] MEDS: Omeprazole 20 MG CAPSULE.DR PO ×2 (05:29→15:00)
--- NOTE | 2020-01-31 06:54 | PC.NURSE ---
SBP REMAINED IN THE 90'S. MD AWARE. MONITOR CONTINUED AFIB WITH HR 90'S-110. U/O 300 ML.
[2020-01-31 08:13] LABS: Glucose, Whole Blood 156 mg/dL (60-115)
[2020-01-31] MEDS: Furosemide 20 MG TABLET PO (08:16)
[2020-01-31] MEDS: Zinc Oxide 20% Ointment 28.35 GM TUBE 1 APPL TOPICAL ×2 (08:16→22:05)
[2020-01-31 10:35] LABS: Anion Gap 13 (12-20); Blood Urea Nitrogen 26 mg/dL (9-16); Calcium 7.7 mg/dL (8.4-10.2); Carbon Dioxide 27 mmol/L (22-29); Chloride 98 mmol/L (96-108); Creatinine Clr Calc Pharmacy 136.4; Estimated Glomerular Filt Rate > 60; Glucose Random 145 mg/dL (60-115); Potassium 4.4 mmol/l (3.3-5.1); Sodium 134 mmol/L (135-145)
[2020-01-31] MEDS: oxyCODONE HCl Immed Release 5 MG TABLET 10 MG PO ×2 (11:04→19:42)
[2020-01-31 11:17] LABS: INTERNATIONAL NORM RATIO 1.4 (0.9-1.1); Prothrombin Time 16.4 SEC (10.8-13.0)
[2020-01-31] MEDS: Phytonadione (Vit K1) Oral 10 MG/ML AMPUL 5 MG PO (12:23)
[2020-01-31] MEDS: Insulin Lispro 100 UNIT/ML 3 ML VIAL SUBCUT (12:23)
[2020-01-31 13:59] LABS: Glucose, Whole Blood 172 mg/dL (60-115)
--- NOTE | 2020-01-31 14:38 | P.PNIM_ITS ---
Subjective Subjective Interval History: patient seen and examined at bedside patient reported weakness and generalized pain Physical Exam Vital Signs and I&O and Narrative: Vital Signs and I&O: Vital Signs Temp 98.2 F 01/31/20 12:00 Pulse 111 H 01/31/20 12:00 Resp 18 01/31/20 12:00 BP 98/54 L 01/31/20 12:00 Pulse Ox 92 01/31/20 12:00 Intake & Output 01/30/20 01/31/20 01/31/20 18:59 06:59 18:59 Intake Total 150 / 1750.0 1600.0 / 1750.0 240 / 240 Output Total 200 / 1401 1201 / 1401 200 / 200 Balance -50 / 349.0 399 / 349.0 40 / 40 Urine Output (Aver age ml/kg/hr) 0.15 0.42 0.07 Weight 237.7 kg Intake: Intake, Oral [place]ria unt 100 / 100 240 / 240 Intake, IV Amoun t 150 / 1650.0 1500.0 / 1650.0 Albumin Human 25 % 100 ml @ 100 150 / 150 mls/hr IV Q1H [facility] Rx#: [id number] Lactated Ringe rs 500 ml @ 999 1500.0 / 1500.0 mls/hr IVCONT .Q31M [facility] Rx#: [id number] Output: Output, Urine Am ount 100 / 400 300 / 400 Output, Stool Am ount 1 / 1 Output, Urine Am ount (Catheter) 100 / 1000 900 / 1000 200 / 200 Urethral 100 / 1000 900 / 1000 200 / 200 Other: NPO Yes Breakfast % Eate n 25% Lunch % Eaten 50% Number of Bowel Movements 0 1 Number of Incont inent Bowel 1 Movements Urine Color Mary Lou Tea Yellow Last Bowel Movem ent 01/30/20 Stool incontinen incontinen Stool Color Dark Brown Brown Stool Consistenc y Liquid Semi Formed Emesis Color Brown Body Mass Index 92.8 Const: General: cooperative Resp: Effort & Inspection: normal respiratory effort Auscultation: clear to auscultation bilaterally Cardio: Jugular venous distension: no JVD Objective Data Current Medications Generic Name Dose Route Start Last Admin Trade Name Freq PRN Reason Stop Dose Admin Acetaminophen 650 mg 01/29/20 00:01 Acetaminophen 325 Mg Tablet PO Q6H PRN Fever/Pain.Mild (Scale 1-3) Albuterol Sulfate 2 puff 01/29/20 00:01 Albuterol Sulfate 90 Mcg 18 Gm Inhaler INHALE Q4H PRN Shortness of Breath Atenolol 25 mg 01/29/20 09:00 01/31/20 08:15 Atenolol 25 Mg Tablet PO Not Given BID [facility] Atorvastatin Calcium 20 mg 01/29/20 21:00 01/30/20 21:00 Atorvastatin Calcium 20 Mg Tablet PO 20 mg BEDTIME [facility] Administration Docusate Sodium 100 mg 01/28/20 21:00 01/31/20 08:16 Docusate Sodium 100 Mg Capsule PO Not Given BID [facility] Ferrous Sulfate 324 mg 01/30/20 10:00 01/30/20 08:23 Ferrous Sulfate 324 Mg Tablet. PO 324 mg MOWEFR@1000 [facility] Administration Furosemide 20 mg 01/29/20 09:00 01/31/20 08:16 Furosemide 20 Mg Tablet PO 20 mg DAILY [facility] Administration Gabapentin 300 mg 01/29/20 21:00 01/30/20 21:00 Gabapentin 300 Mg Capsule PO 300 mg BEDTIME [facility] Administration Heparin Sodium (Porcine) 5,000 unit 01/29/20 06:00 01/31/20 05:23 Heparin Sodium,Porcine 5,000 Unit/Ml Vial SUBCUT 5,000 unit Q8H [facility] Administration Insulin Human Lispro 0 unit 01/29/20 08:00 01/31/20 12:23 Insulin Lispro 100 Unit/Ml 3 Ml Vial SUBCUT 2 unit QIDACHS [facility] Administration Protocol Levothyroxine Sodium 250 mcg 01/29/20 06:00 01/31/20 05:27 Levothyroxine Sodium 125 Mcg Tablet PO 250 mcg DAILY@0600 [facility] Administration Omeprazole 20 mg 01/29/20 06:30 01/31/20 05:29 Omeprazole 20 Mg Capsule. PO 20 mg BID@0630,1630 [facility] Administration Ondansetron HCl 4 mg 01/29/20 00:01 Ondansetron Hcl 4 Mg/2 Ml Vial IVPUSH Q8H PRN Nausea and Vomiting Oxycodone HCl 10 mg 01/29/20 00:01 01/31/20 11:04 Oxycodone Hcl Immed Release 5 Mg Tablet PO 10 mg Q6H PRN Administration Pain, Moderate (Pain Scale 4-6 Polyethylene Glycol 17 gm 01/29/20 09:00 01/31/20 08:16 Polyethylene Glycol 3350 17 Gm Powd.Pack PO Not Given DAILY [facility] Sodium Chloride 2 ml 01/29/20 00:00 01/31/20 08:15 0.9 % Sodium Chloride Flush 3 Ml Syringe IVFLUSH 2 ml QSHIFT [facility] Administration Zinc Oxide 1 appl 01/29/20 09:00 01/31/20 08:16 Zinc Oxide 20% Ointment 28.35 Gm Tube TOPICAL 1 appl BID [facility] Administration Protocol Labs CBC & Chem 7: 01/31/20 01:54 01/31/20 09:14 Labs: Laboratory Results - last 24 hr 01/30/20 01/30/20 01/31/20 16:46 21:05 01:54 MCV 83.2 MCH 24.6 L MCHC 29.5 L RDW 21.3 H Plt Count 296 MPV 9.6 Immature Gran % (Auto) 0.3 Neut % (Auto) 80.7 H Lymph % (Auto) 8.5 L Leslie % (Auto) 9.0 Eos % (Auto) 1.2 Baso % (Auto) 0.3 Neut # (Auto) 13.9 H Lymph # (Auto) 1.5 Leslie # (Auto) 1.6 H Eos # (Auto) 0.2 Baso # (Auto) 0.1 Abs Immat Gran (auto) 0.06 H Absolute Nucleated RBC 0.000 Nucleated RBC % (auto) 0.0 Smear Tech's Comments VERIFIED PT INR Anion Gap Estim Creat Clear Calc Estimated GFR POC Glucose 127 H 168 H Random Glucose Lactic Acid Calcium 01/31/20 01/31/20 01/31/20 01:54 08:03 09:14 MCV MCH MCHC RDW Plt Count MPV Immature Gran % (Auto) Neut % (Auto) Lymph % (Auto) Leslie % (Auto) Eos % (Auto) Baso % (Auto) Neut # (Auto) Lymph # (Auto) Leslie # (Auto) Eos # (Auto) Baso # (Auto) Abs Immat Gran (auto) Absolute Nucleated RBC Nucleated RBC % (auto) Smear Tech's Comments PT INR Anion Gap 13 Estim Creat Clear Calc 136.4 Estimated GFR > 60 POC Glucose 156 H Random Glucose 145 H Lactic Acid 1.4 Calcium 7.7 L 01/31/20 01/31/20 10:59 11:16 MCV MCH MCHC RDW Plt Count MPV Immature Gran % (Auto) Neut % (Auto) Lymph % (Auto) Leslie % (Auto) Eos % (Auto) Baso % (Auto) Neut # (Auto) Lymph # (Auto) Leslie # (Auto) Eos # (Auto) Baso # (Auto) Abs Immat Gran (auto) Absolute Nucleated RBC Nucleated RBC % (auto) Smear Tech's Comments PT 16.4 H INR 1.4 H Anion Gap Estim Creat Clear Calc Estimated GFR POC Glucose 172 H Random Glucose Lactic Acid Calcium Assessment and Plan (1) Acute hypercapnic respiratory failure due to obstructive sleep apnea: Status: Acute (2) Metastasis from pancreatic cancer: Status: Acute Assessment and Plan: acute hypercapnic respiratory failure metastatic pancreatic cancer continue BiPAP at night given advanced metastatic cancer patient is not candidate for any chemo, family agrees for hospice given recurrent ascites family requested PleurX catheter INR high awaiting for INR to go down for PleurX catheter placement so plan for PleurX catheter denia malagon on Sunday and discharged home on hospice
[2020-01-31 16:42] LABS: Glucose, Whole Blood 141 mg/dL (60-115)
[2020-01-31] MEDS: ondansetron HCL 4 MG/2 ML VIAL IVPUSH (19:39)
[2020-01-31] MEDS: 0.9 % Sodium Chloride 500 ML 999 ML IVCONT (20:41)
[2020-01-31 21:16] LABS: Glucose, Whole Blood 154 mg/dL (60-115)
[2020-01-31] MEDS: Gabapentin 300 MG CAPSULE PO (22:05)
[2020-01-31] MEDS: Atorvastatin Calcium 20 MG TABLET PO (22:06)
[2020-01-31 22:13] LABS: Glucose, Whole Blood 149 mg/dL (60-115)
[2020-02-01] VITALS (10 sets, daily range): BP systolic 77–102; BP diastolic 47–60; PULSE 67–125; RESP 16–21; TEMP 35.8–36.6; O2SAT 95–98
[2020-02-01] MEDS: 0.9 % Sodium Chloride Flush 3 ML SYRINGE 2 ML IVFLUSH ×4 (00:12→23:58)
[2020-02-01] MEDS: 0.9 % Sodium Chloride 500 ML 999 ML IVCONT ×2 (02:59→04:21)
--- NOTE | 2020-02-01 05:19 | PC.NURSE ---
have contacted dr calderon in regard to 1. code status dnr/dni not enetered into computer
--- NOTE | 2020-02-01 05:22 | PC.NURSE ---
dr calderon has been contacted and notified 1. recurrent hypotension which has been minimally responsive to 500 ml boluses 2. intially at the start of the shift sbp in the 70-80 mmhg 3. 3 normal saline boluses given x3 4. sbp has increased into the low 100s mmhg 5. ecg displays aflutter apical heart rate 115-120 bpm 6. atenolol scheduled dose has been held over the 24 hours d/t low b/ps 7. volume status elusive although pt most likely anemic and hypovolemic 8. abdomen large/distended/firm. 9. also addressed dnr status/dni which have been addressed on molst form but not entered into the computer. dr calderon entered dnr/dni status into computer.
[2020-02-01] MEDS: Omeprazole 20 MG CAPSULE.DR PO ×2 (06:26→15:52)
[2020-02-01] MEDS: Levothyroxine Sodium 125 MCG TABLET 250 MCG PO (06:26)
[2020-02-01] MEDS: Heparin Sodium,Porcine 5,000 UNIT/ML VIAL 5000 UNIT SUBCUT ×3 (06:28→23:57)
[2020-02-01 08:13] LABS: Glucose, Whole Blood 158 mg/dL (60-115)
[2020-02-01] MEDS: oxyCODONE HCl Immed Release 5 MG TABLET 10 MG PO ×2 (08:16→15:51)
[2020-02-01] MEDS: atenoloL 25 MG TABLET PO (10:42)
[2020-02-01 11:40] LABS: Glucose, Whole Blood 175 mg/dL (60-115)
[2020-02-01 12:04] LABS: INTERNATIONAL NORM RATIO 1.3 (0.9-1.1); Prothrombin Time 15.2 SEC (10.8-13.0)
[2020-02-01] MEDS: Insulin Lispro 100 UNIT/ML 3 ML VIAL SUBCUT (13:05)
--- NOTE | 2020-02-01 15:13 | HO.PM.IMPN ---
Subjective Subjective Interval History: patient seen and examined at bedside patient reported weakness and generalized pain Physical Exam Vital Signs and I&O and Narrative: Vital Signs and I&O: Vital Signs Temp 97.4 F 02/01/20 11:28 Pulse 100 02/01/20 11:28 Resp 16 02/01/20 11:28 BP 90/60 02/01/20 11:28 Pulse Ox 97 02/01/20 11:28 Intake & Output 01/31/20 02/01/20 02/01/20 18:59 06:59 18:59 Intake Total 240 / 1840 1600 / 1840 Output Total 200 / 450 250 / 450 0 / 0 Balance 40 / 1390 1350 / 1390 0 / 0 Urine Output (Aver age ml/kg/hr) 0.07 0.09 0.00 Intake: Intake, Oral [place] unt 240 / 340 100 / 340 Intake, IV Amoun t 1500 / 1500 0.9 % Sodium C hloride 500 ml @ 1500 / 1500 999 mls/hr IVC ONT .Q31M [facility] Rx# :[id number] Output: Output, Urine Am ount 0 / 0 Output, Urine Am ount (Catheter) 200 / 450 250 / 450 Urethral 200 / 450 250 / 450 Other: Breakfast % Eate n 25% Lunch % Eaten 50% 25% Number of Bowel Movements 1 Urine ny Urine Color Yellow Concentrated Stool incontinen Stool Color Brown Stool Consistenc y Semi Formed Emesis Color Brown Body Mass Index 92.8 Const: General: cooperative Resp: Effort & Inspection: normal respiratory effort Auscultation: clear to auscultation bilaterally Cardio: Jugular venous distension: no JVD Objective Data Current Medications Generic Name Dose Route Start Last Admin Trade Name Freq PRN Reason Stop Dose Admin Acetaminophen 650 mg 01/29/20 00:01 Acetaminophen 325 Mg Tablet PO Q6H PRN Fever/Pain.Mild (Scale 1-3) Albuterol Sulfate 2 puff 01/29/20 00:01 Albuterol Sulfate 90 Mcg 18 Gm Inhaler INHALE Q4H PRN Shortness of Breath Atenolol 25 mg 01/29/20 09:00 02/01/20 10:42 Atenolol 25 Mg Tablet PO 25 mg BID [facility] Administration Atorvastatin Calcium 20 mg 01/29/20 21:00 01/31/20 22:06 Atorvastatin Calcium 20 Mg Tablet PO 20 mg BEDTIME [facility] Administration Docusate Sodium 100 mg 01/28/20 21:00 02/01/20 08:21 Docusate Sodium 100 Mg Capsule PO Not Given BID [facility] Ferrous Sulfate 324 mg 01/30/20 10:00 01/30/20 08:23 Ferrous Sulfate 324 Mg Tablet. PO 324 mg MOWEFR@1000 [facility] Administration Furosemide 20 mg 01/29/20 09:00 02/01/20 10:31 Furosemide 20 Mg Tablet PO Not Given DAILY [facility] Gabapentin 300 mg 01/29/20 21:00 01/31/20 22:05 Gabapentin 300 Mg Capsule PO 300 mg BEDTIME [facility] Administration Heparin Sodium (Porcine) 5,000 unit 01/29/20 06:00 02/01/20 13:04 Heparin Sodium,Porcine 5,000 Unit/Ml Vial SUBCUT 5,000 unit Q8H [facility] Administration Insulin Human Lispro 0 unit 01/29/20 08:00 02/01/20 13:05 Insulin Lispro 100 Unit/Ml 3 Ml Vial SUBCUT 2 unit QIDACHS [facility] Administration Protocol Levothyroxine Sodium 250 mcg 01/29/20 06:00 02/01/20 06:26 Levothyroxine Sodium 125 Mcg Tablet PO 250 mcg DAILY@0600 [facility] Administration Omeprazole 20 mg 01/29/20 06:30 02/01/20 06:26 Omeprazole 20 Mg Capsule. PO 20 mg BID@0630,1630 [facility] Administration Ondansetron HCl 4 mg 01/29/20 00:01 01/31/20 19:39 Ondansetron Hcl 4 Mg/2 Ml Vial IVPUSH 4 mg Q8H PRN Administration Nausea and Vomiting Oxycodone HCl 10 mg 01/29/20 00:01 02/01/20 08:16 Oxycodone Hcl Immed Release 5 Mg Tablet PO 10 mg Q6H PRN Administration Pain, Moderate (Pain Scale 4-6 Polyethylene Glycol 17 gm 01/29/20 09:00 02/01/20 08:21 Polyethylene Glycol 3350 17 Gm Powd.Pack PO Not Given DAILY [facility] Sodium Chloride 2 ml 01/29/20 00:00 02/01/20 08:19 0.9 % Sodium Chloride Flush 3 Ml Syringe IVFLUSH 2 ml QSHIFT [facility] Administration Zinc Oxide 1 appl 01/29/20 09:00 02/01/20 08:21 Zinc Oxide 20% Ointment 28.35 Gm Tube TOPICAL Not Given BID [facility] Protocol Labs CBC & Chem 7: 01/31/20 01:54 01/31/20 09:14 Labs: Laboratory Results - last 24 hr 01/31/20 01/31/20 01/31/20 16:31 21:12 22:09 PT INR POC Glucose 141 H 154 H 149 H 02/01/20 02/01/20 02/01/20 07:57 10:50 11:26 PT 15.2 H INR 1.3 H POC Glucose 158 H 175 H Microbiology Microbiology Results: Microbiology 01/31/20 01:50 Blood - Venous Blood Culture - Preliminary No growth after 24 hours. 01/31/20 01:45 Blood - Venous Blood Culture - Preliminary No growth after 24 hours. Assessment and Plan (1) Acute hypercapnic respiratory failure due to obstructive sleep apnea: Status: Acute (2) Metastasis from pancreatic cancer: Status: Acute Assessment and Plan: acute hypercapnic respiratory failure metastatic pancreatic cancer continue BiPAP at night given advanced metastatic cancer patient is not candidate for any chemo, family agrees for hospice given recurrent ascites family requested PleurX catheter in peritoneum INR high not able to put PleurX catheter on Sunday, INR trended down currently 1.3 , plan for PleurX catheter placement on Sunday patient will be discharged home on hospice on Sunday after PleurX catheter placement patient has new onset of AFib last night currently converted to sinus rhythm and rate stable continue atenolol given patient is going on hospice will not start anticoagulants plan for discharge tomorrow home with hospice after PleurX catheter placement
[2020-02-01 16:43] LABS: Glucose, Whole Blood 151 mg/dL (60-115)
--- NOTE | 2020-02-01 17:41 | PC.NURSE ---
PT blood pressures running soft, 81/59 heart rate NSR 80bpm. Asymptomatic, alert & oriented x4. made aware, will continue to monitor.
[2020-02-01 21:19] LABS: Glucose, Whole Blood 137 mg/dL (60-115)
[2020-02-01] MEDS: Docusate Sodium 100 MG CAPSULE PO (23:57)
[2020-02-01] MEDS: Atorvastatin Calcium 20 MG TABLET PO (23:57)
[2020-02-01] MEDS: Gabapentin 300 MG CAPSULE PO (23:57)
[2020-02-01] MEDS: Zinc Oxide 20% Ointment 28.35 GM TUBE 1 APPL TOPICAL (23:58)
[2020-02-02] VITALS (9 sets, daily range): BP systolic 70–87; BP diastolic 40–47; PULSE 70–81; RESP 10–20; TEMP 36.3–37; O2SAT 97–100
[2020-02-02] MEDS: 0.9 % Sodium Chloride 500 ML 999 ML IVCONT ×2 (03:58→05:02)
[2020-02-02] MEDS: Levothyroxine Sodium 125 MCG TABLET 250 MCG PO (05:02)
[2020-02-02 07:59] LABS: Glucose, Whole Blood 139 mg/dL (60-115)
[2020-02-02 11:44] LABS: Glucose, Whole Blood 126 mg/dL (60-115)
--- NOTE | 2020-02-02 11:51 | MHC.CM.PN ---
Patient is going to the OR today for a drain placement to abd. Discharge plan is home tomorrow on [facility] via BLS transport. CM will continue to follow patient for discharge needs.
[2020-02-02] MEDS: Midodrine HCl 10 MG TABLET PO ×2 (13:17→21:53)
[2020-02-02] MEDS: Albumin Human 25 % 100 ML IV (13:17)
--- NOTE | 2020-02-02 15:03 | MHC.CLN ---
[facility] PENDING WILL FOLLOW WITH CARE TEAM
--- NOTE | 2020-02-02 15:17 | PM.IMPN ---
Subjective Subjective Date of Service: 02/02/20 Interval History: Seen and examined this AM and then again this afternoon AM had some pain but better by the afternoon. was awaiting placement of catheter but have informed her that this is unable to be done as her BP is very low. patient herself wishes only to go home. called patients , no response at this time Constitutional Constitutional: Reports fatigue Cardiovascular Cardiovascular: Denies dyspnea Respiratory Respiratory: Denies dyspnea Gastrointestinal Gastrointestinal: Reports abdominal pain (controlled) Endocrine Endocrine: Reports fatigue Physical Exam Vital Signs and I&O and Narrative: Vital Signs and I&O: Vital Signs Temp 98.2 F 02/02/20 12:00 Pulse 70 02/02/20 12:00 Resp 20 02/02/20 12:00 BP 70/40 L 02/02/20 12:00 Pulse Ox 98 02/02/20 12:00 Intake & Output 02/01/20 02/02/20 02/02/20 18:59 06:59 18:59 Intake Total 1000 / 1000 100 / 100 Output Total 0 / 180 180 / 180 Balance 0 / 820 820 / 820 100 / 100 Urine Output (Aver age ml/kg/hr) 0.00 61.22 61.22 Weight 245 g Intake: Intake, IV Amoun t 1000 / 1000 100 / 100 Albumin Human 25 % 100 ml @ 100 100 / 100 mls/hr IV [facility] Rx#: [id number] 0.9 % Sodium C hloride 500 ml @ 1000 / 1000 999 mls/hr IVC ONT .Q31M [facility] Rx# :[id number] Output: Output, Urine Am ount 0 / 0 Output, Urine Am ount (Catheter) 180 / 180 Urethral 180 / 180 Other: Lunch % Eaten 25% Dinner % Eaten 0% Urine Color Concentrated Yellow Continuous [place] er Irrigation Fluid - Amount I nstilled Urethral 50 Body Mass Index 0.1 Const: General: no acute distress Resp: Effort & Inspection: normal respiratory effort and able to speak in complete sentences Cardio: Heart sounds: S1 normal heart sound present and S2 normal heart sound present GI: Other: distended but non tender without rebound or guarding Neuro: Other: non focal Objective Data Current Medications Generic Name Dose Route Start Last Admin Trade Name Freq PRN Reason Stop Dose Admin Acetaminophen 650 mg 01/29/20 00:01 Acetaminophen 325 Mg Tablet PO Q6H PRN Fever/Pain.Mild (Scale 1-3) Albuterol Sulfate 2 puff 01/29/20 00:01 Albuterol Sulfate 90 Mcg 18 Gm Inhaler INHALE Q4H PRN Shortness of Breath Atorvastatin Calcium 20 mg 01/29/20 21:00 02/01/20 23:57 Atorvastatin Calcium 20 Mg Tablet PO 20 mg BEDTIME [facility] Administration Docusate Sodium 100 mg 01/28/20 21:00 02/02/20 09:18 Docusate Sodium 100 Mg Capsule PO Not Given BID [facility] Ferrous Sulfate 324 mg 01/30/20 10:00 02/02/20 09:18 Ferrous Sulfate 324 Mg Tablet. PO Not Given MOWEFR@1000 [facility] Gabapentin 300 mg 01/29/20 21:00 02/01/20 23:57 Gabapentin 300 Mg Capsule PO 300 mg BEDTIME [facility] Administration Heparin Sodium (Porcine) 5,000 unit 01/29/20 06:00 02/02/20 14:40 Heparin Sodium,Porcine 5,000 Unit/Ml Vial SUBCUT Not Given Q8H [facility] Insulin Human Lispro 0 unit 01/29/20 08:00 02/02/20 13:18 Insulin Lispro 100 Unit/Ml 3 Ml Vial SUBCUT Not Given QIDACHS [facility] Protocol Levothyroxine Sodium 250 mcg 01/29/20 06:00 02/02/20 05:02 Levothyroxine Sodium 125 Mcg Tablet PO 250 mcg DAILY@0600 [facility] Administration Omeprazole 20 mg 01/29/20 06:30 02/02/20 05:02 Omeprazole 20 Mg Capsule. PO Not Given BID@0630,1630 [facility] Ondansetron HCl 4 mg 01/29/20 00:01 01/31/20 19:39 Ondansetron Hcl 4 Mg/2 Ml Vial IVPUSH 4 mg Q8H PRN Administration Nausea and Vomiting Oxycodone HCl 10 mg 01/29/20 00:01 02/01/20 15:51 Oxycodone Hcl Immed Release 5 Mg Tablet PO 10 mg Q6H PRN Administration Pain, Moderate (Pain Scale 4-6 Polyethylene Glycol 17 gm 01/29/20 09:00 02/02/20 09:18 Polyethylene Glycol 3350 17 Gm Powd.Pack PO Not Given DAILY [facility] Sodium Chloride 2 ml 01/29/20 00:00 02/02/20 09:15 0.9 % Sodium Chloride Flush 3 Ml Syringe IVFLUSH Not Given QSHIFT [facility] Zinc Oxide 1 appl 01/29/20 09:00 02/02/20 09:18 Zinc Oxide 20% Ointment 28.35 Gm Tube TOPICAL Not Given BID [facility] Protocol Labs CBC & Chem 7: 01/31/20 01:54 01/31/20 09:14 Labs: Laboratory Results - last 24 hr 02/01/20 02/01/20 02/02/20 16:34 21:14 07:52 POC Glucose 151 H 137 H 139 H 02/02/20 11:39 POC Glucose 126 H Microbiology Microbiology Results: Microbiology 01/31/20 01:50 Blood - Venous Blood Culture - Preliminary No growth after 48 hours. 01/31/20 01:45 Blood - Venous Blood Culture - Preliminary No growth after 48 hours. Progress Note: A&P (1) Metastasis from pancreatic cancer: Status: Acute (2) Acute hypercapnic respiratory failure due to obstructive sleep apnea: Status: Acute (3) Liver metastases: Status: Acute Assessment and Plan: This is a unfortunately 64-year-old female who presented to the hospital with respiratory distress and was initially admitted to the intensive care unit for acute hypercapnic respiratory failure requiring BiPAP. She was fortunately able to be successfully weaned off the BiPAP and now is transferred to the intermediate care unit. Her hospital course has been further complicated by ascites with the plan originally to undergo a PleurX catheter placement in the abdomen for drainage to be done at home under hospice services. Unfortunately, her blood pressure has been on the lower side which has held up placement of the catheter. 1. stage IV metastatic pancreatic cancer not a candidate for any chemo family / patient has agreed upon d/c home with hospice services plan was for pleurX cath placement -- unfortunately patietns bp has been low and as such unable to place PleurX cath will give trial of fluids and midodrine to see if bp can be improved d/w the son Ric ([phone]) about the pleurx unable to be placed. Will be in tomorrow and discuss next steps. 2. A. fib being d/c on hopsice -- will not commence work up or treatment not symptoms d/c possibly tomorrow
[2020-02-02] MEDS: Omeprazole 20 MG CAPSULE.DR PO (16:11)
[2020-02-02] MEDS: oxyCODONE HCl Immed Release 5 MG TABLET 10 MG PO (16:34)
[2020-02-02 16:51] LABS: Glucose, Whole Blood 120 mg/dL (60-115)
[2020-02-02 21:43] LABS: Glucose, Whole Blood 157 mg/dL (60-115)
[2020-02-02] MEDS: Gabapentin 300 MG CAPSULE PO (21:54)
[2020-02-02] MEDS: Docusate Sodium 100 MG CAPSULE PO (21:55)
[2020-02-02] MEDS: Atorvastatin Calcium 20 MG TABLET PO (21:56)
[2020-02-02] MEDS: Heparin Sodium,Porcine 5,000 UNIT/ML VIAL 5000 UNIT SUBCUT (21:58)
[2020-02-02] MEDS: Zinc Oxide 20% Ointment 28.35 GM TUBE 1 APPL TOPICAL (22:00)
[2020-02-02] MEDS: Insulin Lispro 100 UNIT/ML 3 ML VIAL SUBCUT (22:04)
[2020-02-02] MEDS: 0.9 % Sodium Chloride Flush 3 ML SYRINGE 2 ML IVFLUSH (23:54)
[2020-02-03 03:25] VITALS: BP 84/45; PULSE 77; RESP 18; TEMP 36.6; O2SAT 98
[2020-02-03 05:53] VITALS: BMI 43.9
[2020-02-03 05:58] VITALS: O2SAT 98
[2020-02-03 07:38] LABS: Glucose, Whole Blood 150 mg/dL (60-115)
[2020-02-03 08:00] VITALS: BP 82/45; PULSE 82; RESP 16; TEMP 36; O2SAT 99
[2020-02-03] MEDS: 0.9 % Sodium Chloride Flush 3 ML SYRINGE 2 ML IVFLUSH (08:33)
--- NOTE | 2020-02-03 11:58 | PM.DS ---
DS: Providers Provider Date of admission: 01/25/20 16:36 Primary care physician: Madeleine Villeda MD Consults: 01/29/20 06:00 Consult to Hematology / Oncology Routine Consulting Provider: Dann Hawk Reason for consultation: Pt w/ metastatic cancer admitted to ICU. ? prognosis / plan DS: Diagnosis Discharge Diagnosis (1) Acute hypercapnic respiratory failure due to obstructive sleep apnea: Status: Acute (2) Liver metastases: Status: Acute (3) Hospice care: Status: Acute (4) Metastasis from pancreatic cancer: Status: Acute DS: Summary Hospital Course Hospital Course: HPI from the admission H&P done by ICU team: This is a 64-year-old female with extensive past medical history including hypertension, diabetes mellitus, COPD, hypoventilation syndrome, hyperlipidemia, lymphedema of lower extremities, hypothyroidism, fibromyalgia, arthritis, sleep apnea, recent diagnosis of endometriosis cancer with metastatic disease to the liver with ascites in earlier december who presents to the ED which shortness of breath and abdominal distention. She reports she has been feeling more short of breath in the past couple days, with her abdomen being more distended in the last 3 days. She saw an oncologist yesterday, who advised her to come to the hospital if it got worse for possible tap. It was also reported that she fell yesterday when her was assisting her to a standing position. Laboratory data and the ED significant for WBC 16.6, sodium 134, potassium 6.2, BUN 28, creatinine 1.05, total bilirubin 2.1, AST 75, alk phos 1051, albumin 2.2 IMAGING: Chest x-ray with no acute pathology, brain CT with no acute findings, abdomen/pelvis CT does show some ascites. ED course: Initial ABGs 7.31/58/85/29, but worsened to 7.26/66/138/29, She was placed on BIPAP, given x 1 L NS, 1g ca gluconate, Insulin 5unit, 1 amp of D50, ceftriaxone 1 g, Flagyl 500 mg, and albumin 100 mL. Transferred to ICU for acute hypercapnic respiratory failure requiring BiPAP Hospital course patient was initially treated for her hypercarbic respiratory failure in the intensive care requiring BiPAP therapy. Fortunately she was able to initially down to nasal cannula and eventually to room air. Cause of her respiratory failure was multifactorial including at least partially her large volume ascites which was drained. Patient's overall condition did have minimal improvement and after multiple meetings with the patient's family along with oncology services decision was made to transition the patient to with hospice. There was a plan initially for the patient to get a PleurX catheter placed in the abdominal cavity for drainage of her ongoing ascites. , however due to the patient's clinical status, particularly her low blood pressure this was not able to be performed. A detailed discussion was held with the patient and the patient's sons and ultimately decided that no PleurX catheter placement and paracentesis will be completed at the time of discharge. Time Spent with Patient Time attestation: Total time spent providing and/or coordinating discharge services: Physical Exam Vital Signs and I&O and Narrative: Vital Signs and I&O: Vital Signs Temp 96.8 F 02/03/20 08:00 Pulse 82 02/03/20 08:00 Resp 16 02/03/20 08:00 BP 82/45 L 02/03/20 08:00 Pulse Ox 99 02/03/20 08:00 Intake & Output 02/02/20 02/03/20 02/03/20 18:59 06:59 18:59 Intake Total 100 / 220 120 / 220 Output Total 200 / 200 Balance 100 / 20 -80 / 20 Urine Output (Aver age ml/kg/hr) 0.15 Weight 112.4 kg Intake: Intake, Oral [place] unt 120 / 120 Intake, IV Amoun t 100 / 100 Albumin Human 25 % 100 ml @ 100 100 / 100 mls/hr IV ONCE ONE Rx#: [id number] Output: Output, Urine Am ount (Catheter) 200 / 200 Urethral 200 / 200 Other: Urine ny Urine Color Yellow Yellow Continuous [place] Irrigation Fluid - Amount I nstilled Urethral 50 Body Mass Index 43.9 DS: Data Data Completed and Pending Labs on day of discharge: Labs from last 24 hours 02/03/20 02/02/20 02/02/20 07:31 21:34 16:28 POC Glucose 150 H 157 H 120 H Preliminary micro results at discharge 01/31/20 01:50 Blood Culture - Preliminary Blood - Venous No growth after 48 hours. 01/31/20 01:45 Blood Culture - Preliminary Blood - Venous No growth after 48 hours. Discharge Plan Discharge Patient Disposition: Hospice - Home Referrals: [facility] [Outside] (Patient will be discharging home with Hospice) Madeleine Villeda MD [Primary Care Provider] - Discharge Medications: New morphine concentrate 100 mg/5 mL (20 mg/mL) solution 5 mg PO Q3-4H PRN (Reason: pain/shortness of breath) Qty: 30 RF: 0 lorazepam [Ativan] 0.5 mg tablet 0.5 mg PO Q6H PRN (Reason: anxiety/restlessness) Qty: 30 RF: 0 Continued polyethylene glycol 3350 [Miralax] 17 gram Powder In Packet 17 g PO DAILY RF: 0 ondansetron HCl [Zofran] 8 mg Tablet 8 mg PO Q8H PRN (Reason: Nausea And Vomiting) RF: 0 levothyroxine 125 mcg Tablet 250 mcg PO DAILY@0630 RF: 0 insulin lispro [Admelog SoloStar U-100 Insulin] 100 unit/mL Insulin Pen See Protocol unit SUBCUT QIDACHS RF: 0 Toujeo Max U-300 SoloStar 300 unit/mL (3 mL) Insulin Pen 70 unit SUBCUT DAILY RF: 0 Discontinued atorvastatin [Lipitor] 20 mg Tablet 20 mg PO BEDTIME RF: 0 atenolol 25 mg Tablet 25 mg PO BID RF: 0 alprazolam [Xanax] 0.25 mg Tablet 0.25 mg PO BID PRN (Reason: Anxiety) RF: 0 docusate sodium [Colace] 100 mg Capsule 100 mg PO BID RF: 0 gabapentin 300 mg Capsule 300 mg PO BEDTIME RF: 0 omeprazole 20 mg Capsule,Delayed Release(Dr/Ec) 20 mg PO BID@0630,1630 RF: 0 aspirin 81 mg Tablet,Chewable 81 mg PO DAILY RF: 0 furosemide 20 mg Tablet 20 mg PO QAM RF: 0 albuterol sulfate [ProAir HFA] 90 mcg/actuation Hfa Aerosol Inhaler 2 puff INHALATION Q4-6H PRN (Reason: Shortness Of Breath) RF: 0 metformin 500 mg Tablet Extended Release 24 Hr 1,000 mg PO BID RF: 0 oxycodone 5 mg Tablet 5 mg PO Q6H PRN (Reason: Abdominal Pain) RF: 0 ferrous sulfate 324 mg (65 mg iron) Tablet,Delayed Release (Dr/Ec) 324 mg PO MOWEFR@1000 RF: 0 cholecalciferol (vitamin D3) 50 mcg (2,000 unit) Tablet 50 mcg PO DAILY RF: 0 lactobacillus combo no.11 15 billion cell Capsule, Sprinkle 1 cap PO DAILY RF: 0 potassium gluconate 500 mg (83 mg) Tablet 500 mg PO DAILY RF: 0 oxycodone 20 mg Tablet,Oral Only,Ext.Rel.12 Hr 20 mg PO BID RF: 0 magnesium oxide 400 mg magnesium Tablet 400 mg PO BEDTIME RF: 0 Discharge Orders: Discharge Order (Routine); Ordered 02/03/20 Ordered By: Kilo Whitaker Diet: advance to your usual diet Activity on Discharge: As tolerated Visit Report Forms: Patient Portal Discharge page Care Plan Goals: Hospice care Health Concerns: Metastatic cancer Plan of Treatment: hospice care
[2020-02-03 12:00] VITALS: BP 86/47; PULSE 81; RESP 18; TEMP 36.8; O2SAT 88
[2020-02-03 12:00] LABS: Glucose, Whole Blood 172 mg/dL (60-115)
--- NOTE | 2020-02-03 12:09 | MHC.CM.PN ---
Patient will be discharged home today with services from [facility]. Transport via BLS at 2pm. Family is awasre.
--- NOTE | 2020-02-03 13:18 | PC.NURSE ---
Removed triple lumen to RIJ per MD order and policy. Catheter intact, tip visualized. DSD and transparent dressing applied. Continuous o2 sat monitoring provided. O2 sat remained at 93% on RA. Patient tolerated well.
== END 2020-02-03 14:33 | disposition hospice, home (50) | DRG 435 ==
PROVIDERS: Internal Medicine; Admitting Provider Internal Medicine Pulmonary Disease; Emergency Provider Physician Assistant; PCP Internal Medicine; Visit Provider Family Medicine
DX: C25.9 Malignant neoplasm of pancreas, unspecified (principal); J96.22 Acute and chronic respiratory failure with hypercapnia; J96.21 Acute and chronic respiratory failure with hypoxia; C78.7 Secondary malignant neoplasm of liver and intrahepatic bile duct; E66.2 Morbid (severe) obesity with alveolar hypoventilation; R18.0 Malignant ascites; Z68.41 Body mass index [BMI] 40.0-44.9, adult; Z88.2 Allergy status to sulfonamides; E03.9 Hypothyroidism, unspecified; E11.9 Type 2 diabetes mellitus without complications; E87.5 Hyperkalemia; Z99.89 Dependence on other enabling machines and devices; Z91.19 Patient's noncompliance with other medical treatment and regimen; G89.29 Other chronic pain; I95.2 Hypotension due to drugs; R79.1 Abnormal coagulation profile; T44.7X5A Adverse effect of beta-adrenoreceptor antagonists, initial encounter; Y92.230 Patient room in hospital as the place of occurrence of the external cause; I48.91 Unspecified atrial fibrillation; Z79.4 Long term (current) use of insulin; Z79.82 Long term (current) use of aspirin; Z79.890 Hormone replacement therapy; Z79.891 Long term (current) use of opiate analgesic; Z79.899 Other long term (current) drug therapy
CPT/HCPCS: 36415; 36600; 47000; 49083; 70450; 71045; 71275; 72125; 74176; 74177; 76705; 76942; 80048; 80051; 80053; 80061; 80076; 81003; 82042; 82105; 82140; 82150; 82378; 82565; 82803; 82945; 82947; 83605; 83615; 83690; 83735; 84100; 84132; 84157; 84439; 84443; 84520; 85025; 85379; 85610; 85730; 86301; 87040; 87070; 87205; 88112; 88307; 88341; 88342; 89051; 93005; 93010; 93970; 94660; 96361; 96365; 96374; 96375; 99285; C1729; C1758; J0610; J0696; J1650; J2250; J2270; J2405; J2543; J3010; J3370; J3430; P9047; Q9967